=== PATIENT | female | born 2005 | race Caucasian/White ===

== ENCOUNTER 2023-05-14 16:51 | Inpatient (IN) | payer SELFPAY ==
[2023-05-14 16:55] VITALS: BP 176/115; PULSE 86; RESP 16; TEMP 36.8; O2SAT 98
[2023-05-14 17:31] VITALS: BMI 50.8
[2023-05-14] MEDS: acetaminophen 325 mg Tablet 650 MG PO (17:54)
[2023-05-14] MEDS: LORazepam 2 mg Tablet PO ×2 (17:54→22:00)
--- NOTE | 2023-05-14 17:56 | PC.NURSE ---
PRN MED PT GIVEN 2MG ATIVAN FOR ANXIETY & 11 CIWA SCORE, WILL CONTINUE TO MONITOR.
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
[2023-05-14] MEDS: OLANZapine 5 mg ODT PO (20:20)
[2023-05-14 20:34] VITALS: BP 161/118; PULSE 90; RESP 18; TEMP 36.7; O2SAT 99
[2023-05-14] MEDS: trazodone 50 mg Tablet PO (21:44)
--- NOTE | 2023-05-14 22:22 | PC.NURSE ---
Pt scored on CIWA scale and had a high BP of 168/116. This EKG TECH called Dr. Marinelli and pt received 2mg PO Ativan. Will continue to monitor.
[2023-05-15 06:00] VITALS: BP 111/87; PULSE 77; RESP 18; O2SAT 96
[2023-05-15] MEDS: thiamine 100 mg Tablet PO (08:23)
[2023-05-15] MEDS: multivitamin therapeutic Tablet 1 TAB PO (08:23)
[2023-05-15] MEDS: folic acid 1 mg Tablet PO (08:23)
[2023-05-15] MEDS: nicotine 21 mg Patch 1 PATCH TRANSDERMA (08:23)
--- NOTE | 2023-05-15 11:27 | P.NPUHP_ITS ---
Providers/Chief Complaint Admitting Physician: Max Marinelli MD Chief Complaint: SI HPI NPU History of Present Illness Dominga Phelps is a 18 year old female who presented to an outside hospital presenting very with depression, off of her medication and having a blood alcohol of 210. She was evaluated and noted to be suicidal and an affidavit was written and she was transferred to [facility] and admitted to the neuropsychiatric unit for definitive treatment of those issues. She presents today reporting: CHIEF COMPLAINT Suicidal thoughts, off medication. HISTORY OF THE PRESENT COMPLAINT The patient reported feeling suicidal and has been off their medications, Prozac and Trazodone, which they had been taking for about a month from the [facility] in [place]. They have a history of multiple hospitalizations, both as an adult and as a child, with about six to seven instances during their childhood. They have also received outpatient services, having seen a therapist at a place in [place] and at the [facility] in [place]. The patient has been struggling with depression and anxiety since around the age of 9, and was diagnosed with severe depression disorder and anxiety at the age of 10. They reported experiencing low mood, feelings of helplessness, hopelessness, and worthlessness, as well as sleep difficulties. They also reported having issues with their appetite, either eating too much or not eating at all. They have had times where they felt like they didn't want to go on anymore, and have had a suicide attempt when they were around 13 years old. They also reported self- injurious behavior, such as cutting and burning themselves, which last occurred when they were around 13 years old. The patient reported having occasional panic attacks, but mostly struggles with constant worrying. They have had nightmares about bad things that have happened in their life, which occur randomly, about twice a year. They also reported having intrusive thoughts, such as feeling the need to count their steps, but it doesn't cause them distress. The patient reported using tobacco daily, specifically vaping, and drinking alcohol quite a bit for about five years. They estimated consuming about five to ten shots of alcohol about four days out of the week. They have had one DUI and were penalized with two years of supervised probation, 80 hours of community service, and about 40 drug tests, which are not yet completed. The patient reported being currently unemployed, but plans to return to their previous job at [employer] after their current treatment. They live in a house with their grandparents and brother. They have been living there since March of the previous year. The patient reported having high blood pressure and high cholesterol in the past, but has never been on medication for these conditions. They also reported having issues with their weight throughout their life, and have noticed significant changes in their weight in the last year or two due to stress. The patient reported that their mood today is low. They denied having any current thoughts of hurting themselves or others, feeling paranoid, or experiencing hallucinations. They reported that they felt the Prozac and Trazodone were helping them when they were taking them. They are currently not on any medication, but plan to restart Prozac and Trazodone. We discussed the risks, benefits and alternatives of restarting those medications and she understood and agreed to proceed as is documented in this note. We discussed the importance of us getting her connected with services and having likely increases in the Prozac for affect. MENTAL HEALTH HISTORY Patient has been taking Prozac and trazodone for about a month from the [facility] in [place]. Has been hospitalized several times as an adult and as a child (approximately six to seven times). Has received outpatient services, see ing a therapist in [place] and at a [facility] in [place]. Has been on multiple medications but cannot recall names. Diagnosed with severe depression disorder and anxiety at age 10. Has had suicidal thoughts and a suicide attempt at age 13. Also has issues with self-injurious behavior, last instance at age 13. Has had panic attacks but they are not frequent. Has had nightmares about past traumatic events, occurring randomly about twice a year. Has been diagnosed with ADHD. SOCIAL HISTORY Patient uses tobacco (vaping) daily. Drinks alcohol quite a bit, about four days out of the week, consuming five to ten shots each time. Has been drinking for about five years. No other drug use reported. Has had a DUI and was penalized with two years supervised probation, 80 hours of community service, and 40 drug tests. Probation is not yet completed. Family history of addiction on both sides. Lives with grandparents and brother. Currently unemployed but plans to return to work at [employer] after hospitalization. Has been trying to lose weight but struggles with it. Meds NPU Home Medications Medication Instructions Recorded Confirmed Last Taken Type fluoxetine 20 mg capsule (Prozac) 20 mg PO DAILY 05/14/23 05/14/23 05/12/23 History hydroxyzine HCl 50 mg tablet 50 mg PO QID PRN Anxiety 05/14/23 05/14/23 04/30/23 History trazodone 50 mg tablet 50 mg PO BEDTIME 05/14/23 05/14/23 05/12/23 History Allergies Allergy/AdvReac Type Severity Reaction Status Date / Time Penicillins Allergy ALGY-Anaphy Verified 05/14/23 17:25 laxis Mental Status Exam MSE Comments: This is a morbidly obese white female in hospital scrubs with adequate grooming and eye contact. No abnormal movements except for mild psychomotor retardation. Cooperative with exam and mild distress. Speech was decreased rate and volume. Mood described as depressed, affect congruent. Thought process organized. Thought content: Patient denied suicidal or homicidal ideation, there were no delusions reported or noted, she denied any auditory or visual hallucinations. Patient reports feeling suicidal at times off medication. Reports low mood, feelings of helplessness, hopelessness, worthlessness, sleep difficulty, and issues with appetite. Reports having panic attacks but not frequently. Reports having nightmares about past traumatic events. No current thoughts to hurt or kill others. No feelings of paranoia or hallucinations reported. Attention and concentration were intact and memory appeared mostly reliable but none were formally tested. She is alert and oriented x 3. Insight and judgment appear fair impulse control limited. Vitals/I&O/Wt Last Vital Signs Temp 98.0 F 05/14/23 20:34 Pulse 77 05/15/23 06:00 Resp 18 05/15/23 06:00 BP 111/87 05/15/23 06:00 Pulse Ox 96 05/15/23 06:00 O2 Del Method Room Air 05/15/23 06:00 Weight last 48 hrs Weight 142.882 kg A&P Assessment and plan (1) Alcohol use disorder, moderate, dependence: (2) Major depressive disorder, recurrent: (3) Anxiety disorder, unspecified: (4) Morbid obesity: (5) Insurance coverage problems: Plan This is a 18-year-old white female with a previous history of mental health and addiction issues who presents with a long history of mental health issues including depression and an alcohol use disorder. She has been hospitalized many times for her condition to previous times as an adult the last time being a month ago. She is having active alcohol addiction and is open to restarting medication. 1. Start Prozac 20 mg p.o. daily as well as trazodone 50 mg p.o. nightly and plan to increase the Prozac dose prior to discharge 2. Continue every 15 minute checks for safety. 3. Encourage individual, group and milieu therapy. 4. Encourage sober living treatment after discharge at the highest level of care to which she is willing to commit.Patient presents with severe depression and anxiety, suicidal thoughts, and a history of self-injurious behavior. 5. Initiate CIWA protocol. 6. Work with social work team on Wednesday for appropriate aftercare planning. Involuntary Hold Information 96 Hour Hold: 96 Hour Involuntary Admission: No Attestations NPU Medical Necessity Statement*: Inpatient hospitalization is medically necessary and the clinically appropriate intervention at this time. We will monitor medications and make changes as indicated. He will be in the hospital over 2 midnights. Likely length of stay 2-4 days. Coding Level of Care Code Acute Code for Chg Fwd Diagnoses Alcohol use disorder, moderate, dependence F10.20 Major depressive disorder, recurrent F33.9 Anxiety disorder, unspecified F41.9 Morbid obesity E66.01 Insurance coverage problems Z59.89
[2023-05-15 14:00] VITALS: BP 156/116; PULSE 81; RESP 16; TEMP 36.6; O2SAT 98
[2023-05-15] MEDS: fluoxetine 20 mg Capsule PO (17:58)
[2023-05-15] MEDS: trazodone 50 mg Tablet PO (20:16)
[2023-05-15] MEDS: hyDROXYzine 25 mg Capsule 50 MG PO (20:16)
[2023-05-15 20:47] VITALS: BP 159/105; PULSE 100; RESP 18; TEMP 36.6; O2SAT 99
[2023-05-16 06:00] VITALS: BP 124/86; PULSE 81; RESP 16; O2SAT 97
--- NOTE | 2023-05-16 07:48 | P.NPUPN_ITS ---
Subjective NPU Subjective: Today patient presented reports she is better than yesterday. Withdrawal is very limited and she feels optimistic about things moving forward. We discussed the treatment team available tomorrow to work on discharge planning and follow- up. She denied side effects to medication. Mental Status Exam MSE Comments: This is a morbidly obese white female in hospital scrubs with adequate grooming and eye contact. No abnormal movements except for mild psychomotor retardation. Cooperative with exam and mild distress. Speech was decreased rate and volume. Mood described as feeling better, affect congruent. Thought process organized. Thought content: Patient denied suicidal or homicidal ideation, there were no delusions reported or noted, she denied any auditory or visual hallucinations. Patient reports feeling suicidal at times off medication. Reports low mood, feelings of helplessness, hopelessness, worthlessness, sleep difficulty, and issues with appetite. Reports having panic attacks but not frequently. Reports having nightmares about past traumatic events. No current thoughts to hurt or kill others. No feelings of paranoia or hallucinations reported. Attention and concentration were intact and memory appeared mostly reliable but none were formally tested. She is alert and oriented x 3. Insight and judgment appear fair impulse control limited. Vitals/I&O/Wt Last Vital Signs Temp 97.8F 05/15/23 20:47 Pulse 81 05/16/23 06:00 Resp 16 05/16/23 06:00 BP 124/86 05/16/23 06:00 Pulse Ox 97 05/16/23 06:00 O2 Del Method Room Air 05/15/23 20:47 Weight last 48 hrs Weight 150.321 kg A&P Assessment and plan (1) Alcohol use disorder, moderate, dependence: (2) Major depressive disorder, recurrent: (3) Anxiety disorder, unspecified: (4) Morbid obesity: (5) Insurance coverage problems: Plan This is a 18-year-old white female with a previous history of mental health and addiction issues who presents with a long history of mental health issues including depression and an alcohol use disorder. She has been hospitalized many times for her condition to previous times as an adult the last time being a month ago. She is having active alcohol addiction and is open to restarting medication. 1. Started Prozac 20 mg p.o. daily as well as trazodone 50 mg p.o. nightly and plan to increase the Prozac dose prior to discharge 2. Continue every 15 minute checks for safety. 3. Encourage individual, group and milieu therapy. 4. Encourage sober living treatment after discharge at the highest level of care to which she is willing to commit.Patient presents with severe depression and anxiety, suicidal thoughts, and a history of self-injurious behavior. 5. Initiate CIWA protocol. 6. Work with social work team on Wednesday for appropriate aftercare planning. Involuntary Hold Information 96 Hour Hold: 96 Hour Involuntary Admission: No Attestations NPU Medical Necessity Statement*: Inpatient hospitalization is medically necessary and the clinically appropriate intervention at this time. We will monitor medications and make changes as indicated. Likely length of stay 2-3 days. Coding Level of Care Code Acute Code for g Fwd Diagnoses Alcohol use disorder, moderate, dependence F10.20 Major depressive disorder, recurrent F33.9 Anxiety disorder, unspecified F41.9 Morbid obesity E66.01 Insurance coverage problems Z59.89
[2023-05-16] MEDS: thiamine 100 mg Tablet PO (08:47)
[2023-05-16] MEDS: multivitamin therapeutic Tablet 1 TAB PO (08:47)
[2023-05-16] MEDS: nicotine 21 mg Patch 1 PATCH TRANSDERMA (08:47)
[2023-05-16] MEDS: fluoxetine 20 mg Capsule PO (08:47)
[2023-05-16] MEDS: folic acid 1 mg Tablet PO (08:47)
[2023-05-16 13:20] VITALS: BP 151/92; PULSE 89; RESP 16; TEMP 36.6; O2SAT 99
[2023-05-16 19:49] VITALS: BP 136/85; PULSE 94; RESP 18; O2SAT 100
[2023-05-16] MEDS: trazodone 50 mg Tablet PO (20:08)
[2023-05-16] MEDS: hyDROXYzine 25 mg Capsule 50 MG PO (20:08)
[2023-05-17 06:00] VITALS: BP 128/85; PULSE 63; RESP 16; TEMP 36.5; O2SAT 98
[2023-05-17] MEDS: multivitamin therapeutic Tablet 1 TAB PO (08:22)
[2023-05-17] MEDS: thiamine 100 mg Tablet PO (08:22)
[2023-05-17] MEDS: nicotine 21 mg Patch 1 PATCH TRANSDERMA (08:22)
[2023-05-17] MEDS: fluoxetine 20 mg Capsule PO (08:22)
[2023-05-17] MEDS: folic acid 1 mg Tablet PO (08:22)
[2023-05-17] MEDS: hyDROXYzine 25 mg Capsule 50 MG PO ×2 (12:12→18:05)
[2023-05-17 14:00] VITALS: BP 168/94; PULSE 91; RESP 17; TEMP 36.6; O2SAT 96
--- NOTE | 2023-05-17 16:39 | P.NPUPN_ITS ---
Subjective NPU Subjective: 18-year-old female admitted with depress ion and alcohol abuse who had reported an extended history of depression and a few previous inpatient hospitalizations. She had reported previous trials on antidepressants and [facility] She had reported no history of eating disorders. She had reported a history of hopelessness and stated that her drinking problems were substantial although she had minimized any history of alcohol-related withdrawal. She had reported having recently had a DUI and stated that she wished to get help as she had been currently on probation with repeated drug testing for which the patient had recently shown a positive for a lcohol and had violated the drug test with further consequences legally reported. Patient had reported no previous substance abuse treatment either inpatient or outpatient. Mental Status Exam MSE Comments: This is a morbidly obese white female in hospital scrubs with adequate grooming and eye contact. No abnormal movements except for mild psychomotor retardation. Cooperative with exam and mild distress. Speech was normal in rate and volume. Mood described as better. Her affect was slightly restricted in range and mood incongruent. Thought process organized. Thought content: Patient denied suicidal or homicidal ideation, there were no delusions reported or noted, she denied any auditory or visual hallucinations. No feelings of paranoia or hallucinations reported. Attention and concentration were intact and memory appeared mostly reliable but none were formally tested. She is alert and oriented x 3. Insight and judgment appear fair impulse control limited. Vitals/I&O/Wt Last Vital Signs Temp 97.8 F 05/17/23 14:00 Pulse 91 05/17/23 14:00 Resp 17 05/17/23 14:00 BP 168/94 05/17/23 14:00 Pulse Ox 96 05/17/23 14:00 O2 Del Method Room Air 05/15/23 20:47 Weight last 48 hrs Weight 150.321 kg A&P Assessment and plan (1) Alcohol use disorder, moderate, dependence: (2) Major depressive disorder, recurrent: (3) Anxiety disorder, unspecified: (4) Morbid obesity: (5) Insurance coverage problems: Plan This is a 18-year-old white female with a previous history of mental health and addiction issues who presents with a long history of mental health issues including depression and an alcohol use disorder. She has been hospitalized many times for her condition to previous times as an adult the last time being a month ago. She is having active alcohol addiction and is open to restarting medication. 1. Continue Prozac 20mg daily and Trazodone 50mg at night. 2. Continue every 15 minute checks for safety. 3. Encourage individual, group and milieu therapy. 4. Encourage sober living treatment after discharge at the highest level of care to which she is willing to commit. Patient presents with severe depression and anxiety, suicidal thoughts, and a history of self-injurious behavior. 5. Continue CIWA protocol. 6. Work with social work team for appropriate aftercare planning. Involuntary Hold Information 96 Hour Hold: 96 Hour Involuntary Admission: No Attestations NPU Medical Necessity Statement*: Inpatient hospitalization is medically necessary and the clinically appropriate intervention at this time. We will monitor medications and make changes as indicated. Her likely length of stay is 2-3 days. Coding Level of Care Code Acute Code for g Fwd Diagnoses Alcohol use disorder, moderate, dependence F10.20 Major depressive disorder, recurrent F33.9 Anxiety disorder, unspecified F41.9 Morbid obesity E66.01 Insurance coverage problems Z59.89
--- NOTE | 2023-05-17 18:06 | PC.NURSE ---
PRN VISTARIL 50 MG GIVEN PO PER PT C/O STATED ANXIETY. NO OUTWARD S/S OF ANXIETY NOTED, MOOD PLEASANT & COOPERATIVE
[2023-05-17] MEDS: trazodone 50 mg Tablet PO ×2 (20:17→21:55)
[2023-05-17 21:00] VITALS: BP 135/84; PULSE 96; RESP 18; TEMP 36.4; O2SAT 99
[2023-05-18 06:00] VITALS: BP 130/92; PULSE 99; RESP 16; TEMP 36.8; O2SAT 96
[2023-05-18] MEDS: thiamine 100 mg Tablet PO (08:20)
[2023-05-18] MEDS: folic acid 1 mg Tablet PO (08:20)
[2023-05-18] MEDS: multivitamin therapeutic Tablet 1 TAB PO (08:20)
[2023-05-18] MEDS: fluoxetine 20 mg Capsule PO (08:20)
[2023-05-18] MEDS: nicotine 21 mg Patch 1 PATCH TRANSDERMA (09:14)
--- NOTE | 2023-05-18 11:02 | P.NPUDS_ITS ---
Diagnoses at Discharge Discharge Diagnosis (1) Alcohol use disorder, moderate, dependence: Status: Acute (2) Major depressive disorder, recurrent: Status: Acute (3) Anxiety disorder, unspecified: Status: Acute (4) Morbid obesity: Status: Acute (5) Insurance coverage problems: Status: Resolved Reason for Visit Reason for Visit: SI Brief History: History of Present Illness Dominga Phelps is a 18 year old female who presented to an outside hospital presenting very with depression, off of her medication and having a blood alcohol of 210. She was evaluated and noted to be suicidal and an affidavit was written and she was transferred to [facility] and admitted to the neuropsychiatric unit for definitive treatment of those issues. She presents today reporting: CHIEF COMPLAINT Suicidal thoughts, off medication. HISTORY OF THE PRESENT COMPLAINT The patient reported feeling suicidal and has been off their medications, Prozac and Trazodone, which they had been taking for about a month from the [facility] in [place]. They have a history of multiple hospitalizations, both as an adult and as a child, with about six to seven instances during their childhood. They have also received outpatient services, having seen a therapist at a place in [place] and at the [facility] in [place]. The patient has been struggling with depression and anxiety since around the age of 9, and was diagnosed with severe depression disorder and anxiety at the age of 10. They reported experiencing low mood, feelings of helplessness, hopelessness, and worthlessness, as well as sleep difficulties. They also reported having issues with their appetite, either eating too much or not eating at all. They have had times where they felt like they didn't want to go on anymore, and have had a suicide attempt when they were around 13 years old. They also reported self- injurious behavior, such as cutting and burning themselves, which last occurred when they were around 13 years old. The patient reported having occasional panic attacks, but mostly struggles with constant worrying. They have had nightmares about bad things that have happened in their life, which occur randomly, about twice a year. They also reported having intrusive thoughts, such as feeling the need to count their steps, but it doesn't cause them distress. The patient reported using tobacco daily, specifically vaping, and drinking alcohol quite a bit for about five years. They estimated consuming about five to ten shots of alcohol about four days out of the week. They have had one DUI and were penalized with two years of supervised probation, 80 hours of community service, and about 40 drug tests, which are not yet completed. The patient reported being currently unemployed, but plans to return to their previous job at [employer] after their current treatment. They live in a house with their grandparents and brother. They have been living there since March of the previous year. The patient reported having high blood pressure and high cholesterol in the past, but has never been on medication for these conditions. They also reported having issues with their weight throughout their life, and have noticed significant changes in their weight in the last year or two due to stress. The patient reported that their mood today is low. They denied having any current thoughts of hurting themselves or others, feeling paranoid, or experiencing hallucinations. They reported that they felt the Prozac and Trazodone were helping them when they were taking them. They are currently not on any medication, but plan to restart Prozac and Trazodone. We discussed the risks, benefits and alternatives of restarting those medications and she understood and agreed to proceed as is documented in this note. We discussed the importance of us getting her connected with services and having likely increases in the Prozac for affect. MENTAL HEALTH HISTORY Patient has been taking Prozac and trazodone for about a month from the [facility] in [place]. Has been hospitalized several times as an adult and as a child (approximately six to seven times). Has received outpatient services, seeing a therapist in [place] and at a [facility] in [place]. Has been on multiple medications but cannot recall names. Diagnosed with severe depression disorder and anxiety at age 10. Has had suicidal thoughts and a suicide attempt at age 13. Also has issues with self-injurious behavior, last instance at age 13. Has had panic attacks but they are not frequent. Has had nightmares about past traumatic events, occurring randomly about twice a year. Has been diagnosed with ADHD. SOCIAL HISTORY Patient uses tobacco (vaping) daily. Drinks alcohol quite a bit, about four days out of the week, consuming five to ten shots each time. Has been drinking for about five years. No other drug use reported. Has had a DUI and was penalized with two years supervised probation, 80 hours of community service, and 40 drug tests. Probation is not yet completed. Family history of addiction on both sides. Lives with grandparents and brother. Currently unemployed but plans to return to work at [employer] after hospitalization. Has been trying to lose weight but struggles with it. Hospital Course Hospital Course During the hospitalization, the patient had routine laboratory studies which were within normal limits except for a few outliers.? Additionally, there was a general medical evaluation which was also within normal limits and revealed no new acute processes.? At the time of discharge, lethality was denied and psychosis was resolving.? Mood and anxiety were well managed.? The patient endorsed a plan to avoid all drugs of abuse and follow up with the aftercare recommendations of the treatment team.? The patient was evaluated and deemed to be absent credible lethality and had achieved the maximum benefit from an inpatient hospitalization, and so was discharged. ?Prozac was initiated and titrated up to 40mg on discharge. Patient was agreeable of use of naltrexone on outpatient basis to target her alcohol use and this was given on an outpatient basis with a plan to switch to IM Vivitrol once patient could afford it (she was waiting for activation of medicaid). Involuntary Hold Information 96 Hour Hold: 96 Hour Involuntary Admission: No Mental Status Exam MSE Comments: This is a morbidly obese white female in hospital scrubs with adequate grooming and eye contact. No abnormal movements except for mild psychomotor retardation. Cooperative with exam and mild distress. Speech was normal in rate and volume. Mood described as better. Her affect was slightly restricted in range but brighter on discharge. Thought process organized. Thought content: Patient denied suicidal or homicidal ideation, there were no delusions reported or noted, she denied any auditory or visual hallucinations. No feelings of paranoia or hallucinations reported. Attention and concentration were intact and memory appeared mostly reliable but none were formally tested. She is alert and oriented x 3. Insight and judgment appear fair impulse control was improved. Discharge Data Vitals: Last Vital Signs Temp 98.2 F 05/18/23 06:00 Pulse 99 05/18/23 06:00 Resp 16 05/18/23 06:00 BP 130/92 05/18/23 06:00 Pulse Ox 96 05/18/23 06:00 O2 Del Method Room Air 05/18/23 06:00 Discharge Plan Discharge Patient Disposition: Home Condition: Stable Prescriptions: New fluoxetine 20 mg Capsule 40 mg PO DAILY 30 Days Qty: 60 1RF folic acid 1 mg Tablet 1 mg PO DAILY 30 Days Qty: 30 1RF Vitamin B-1 (mononitrate) 100 mg Tablet 100 mg PO DAILY 30 Days Qty: 30 1RF trazodone 50 mg Tablet 50 mg PO BEDTIME 30 Days Qty: 30 1RF naltrexone 50 mg tablet 50 mg PO DAILY 30 Days Qty: 30 1RF Rx Instructions: Discontinue this oral medicine once receiving first dose of Vivitrol Vivitrol 380 mg suspension,extended rel recon 380 mg IM ONCE 28 Days Qty: 1 1RF Discontinued fluoxetine [Prozac] 20 mg Capsule 20 mg PO DAILY trazodone 50 mg Tablet 50 mg PO BEDTIME hydroxyzine HCl 50 mg Tablet 50 mg PO QID PRN (Reason: Anxiety) Discharge Orders: Discharge Order (Routine); Ordered 05/18/23 Ordered By: Antione José Referrals: [facility] [Other] - 06/01/23 11:15 am (Initial assessment for services with Luis E Arzate. Arrive a little early to complete paperwork. Discuss services available until your psychiatry appointment.) FLIGHT NURSE Gem Martinez-[facility] [Other] - 10/13/23 11:00 am (1 hour appointment slot) Discharge Diet: Usual diet Discharge Activity: Resume usual activity Patient Instructions: Alcoholism, Generalized Anxiety Disorder, Depression (DC), Opioid Safety Discharge Attestations NPU Time Spent in Discharge Care*: less than 30 min Coding Level of Care Code Acute Code for Chg Fwd Diagnoses Alcohol use disorder, moderate, dependence F10.20 Major depressive disorder, recurrent F33.9 Anxiety disorder, unspecified F41.9 Morbid obesity E66.01 Insurance coverage problems Z59.89
[2023-05-18 11:22] VITALS: BP 130/92; PULSE 99; RESP 16; TEMP 36.8; O2SAT 96
== END 2023-05-18 13:15 | disposition home or self-care (01) | DRG 885 ==
PROVIDERS: Admitting Provider Psychiatry & Neurology Psychiatry; Visit Provider Psychiatry & Neurology Psychiatry
DX: F33.9 Major depressive disorder, recurrent, unspecified (principal); R45.851 Suicidal ideations; Z68.43 Body mass index [BMI] 50.0-59.9, adult; F41.9 Anxiety disorder, unspecified; F10.20 Alcohol dependence, uncomplicated; Y90.7 Blood alcohol level of 200-239 mg/100 ml; Z72.0 Tobacco use; E66.01 Morbid (severe) obesity due to excess calories; Z91.51 Personal history of suicidal behavior; Z91.52 Personal history of nonsuicidal self-harm; Z59.7 Insufficient social insurance and welfare support
CPT/HCPCS: 97150; 97165